=== PATIENT | female | born 1995 | race Caucasian/White ===

== ENCOUNTER 2018-06-06 11:24 | Inpatient (IN) | payer MEDICAID ==
[2018-06-06] MEDS ORDERED: Citric Acid/Sodium Citrate Solution 30 ML Cup PO ONE (12:09)
[2018-06-06] MEDS ORDERED: ceFAZolin 2 GM in Premix Bag 1 BAG IV ONE (12:09)
[2018-06-06] MEDS ORDERED: Sodium Chloride 0.9% 10 ML SDV IV PRN (12:09)
[2018-06-06] MEDS ORDERED: Sodium Chloride 0.9% 2.5 ML Syringe FLUSH PRN (12:09)
[2018-06-06] MEDS ORDERED: Sodium Chloride 0.9% 10 ML Syringe FLUSH PRN (12:09)
[2018-06-06] MEDS ORDERED: Oxytocin/0.9 % Sodium Chloride 30 UNIT/500 ML BAG IV SCH (12:15)
[2018-06-06] MEDS ORDERED: Lactated Ringers 1,000 ML IV SCH ×2 (12:15→15:15)
--- NOTE | 2018-06-06 13:22 | PCM.PREANE ---
Preanesthetic Assessment - Anesthesia/Transfusion/Family Hx Anesthesia History: Prior Anesthesia Without Reaction Family History of Anesthesia Reaction: No Transfusion History: Prior Transfusion Without Reaction - Review of Systems General: No Symptoms Pulmonary: No Symptoms Cardiovascular: No Symptoms Gastrointestinal: No Symptoms Neurological: No Symptoms Other: Reports: None - Physical Assessment NPO Status Date: 06/06/18 NPO Status Time: 00:00 Pulse: 86 O2 Sat by Pulse Oximetry: 99 Respiratory Rate: 18 Blood Pressure: 112/65 Temperature: 98.3 C Height: 1.63 m Weight: 73.709 kg ASA Class: 2E Mental Status: Alert & Oriented x3 Airway Class: Mallampati = 2 Dentition: Reports: Normal Dentition Thyro-Mental Finger Breadths: 3 Mouth Opening Finger Breadths: 3 ROM/Head Extension: Full Lungs: Clear to Auscultation, Normal Respiratory Effort Cardiovascular: Regular Rate, Regular Rhythm - Lab Values: Laboratory Last Values WBC 11.29 K/uL (4.0-11.0) H 06/06/18 12:17 RBC 4.24 M/uL (4.30-5.90) L 06/06/18 12:17 Hgb 12.3 g/dL (12.0-16.0) 06/06/18 12:17 Hct 37.7 % (36.0-46.0) 06/06/18 12:17 MCV 88.9 fL (80.0-98.0) 06/06/18 12:17 MCH 29.0 pg (27.0-32.0) 06/06/18 12:17 MCHC 32.6 g/dL (31.0-37.0) 06/06/18 12:17 RDW Std Deviation 80.2 fl (28.0-62.0) H 06/06/18 12:17 RDW Coeff of Sarah 26 % (11.0-15.0) H 06/06/18 12:17 Plt Count 183 K/uL (150-400) 06/06/18 12:17 MPV 10.50 fL (7.40-12.00) 06/06/18 12:17 Nucleated RBC % 0.0 /100WBC 06/06/18 12:17 Nucleated RBCs # 0 K/uL 06/06/18 12:17 Membrane Rupture POSITIVE 06/06/18 11:20 Blood Type O POSITIVE 06/06/18 12:17 Antibody Screen NEGATIVE 06/06/18 12:17 - Allergies Allergies/Adverse Reactions: Allergies Allergy/AdvReac Type Severity Reaction Status Date / Time No Known Allergies Allergy Verified 06/06/18 11:32 - Acknowledgements Anesthesia Type Planned: Spinal (possible general anesthesia if procedure is prolonged or spinal is inadequate. ) Pt an Appropriate Candidate for the Planned Anesthesia: Yes Alternatives and Risks of Anesthesia Discussed w Pt/Guardian: Yes Pt/Guardian Understands and Agrees with Anesthesia Plan: Yes PreAnesthesia Questionnaire HEENT History: Reports: Impaired Vision, Other (See Below) Other HEENT History: wears glasses Cardiovascular History: Reports: None Respiratory History: Reports: None Gastrointestinal History: Reports: GERD (in first trimester) Genitourinary History: Reports: None ROPE TIER History: Reports: , Spontaneous Musculoskeletal History: Reports: None Neurological History: Reports: None Psychiatric History: Reports: Depression, Panic Attack Endocrine/Metabolic History: Reports: None Hematologic History: Reports: Iron Deficiency (required iron transfusions during , she was transfused with iron last .) Immunologic History: Reports: None Oncologic (Cancer) History: Reports: None Dermatologic History: Reports: None - Infectious Disease History Infectious Disease History: Reports: None - Past Surgical History Head Surgeries/Procedures: Reports: None HEENT Surgical History: Reports: None GI Surgical History: Reports: None Female Surgical History: Reports: Section Musculoskeletal Surgical History: Reports: None Dermatological Surgical History: Reports: None - SUBSTANCE USE Smoking Status *Q: Former Smoker (stopped after first trimester) Days Per Week of Alcohol Use: 0 (none during ) Recreational Drug Use History: No - HOME MEDS Home Medications: Home Meds Escitalopram [Lexapro] 10 mg PO DAILY 06/04/18 [History] Ferrous Sulfate [Iron] 325 mg PO DAILY 06/04/18 [History] PNV95/Ferrous Fumarate/FA [ Vitamin Tablet] 2 tab PO DAILY 06/04/18 [ History] - CURRENT (IN HOUSE) MEDS Current Meds: Current Medications Oxytocin/Sodium Chloride (Oxytocin 30 Unit/500 Ml-Ns) 30 unit in 500 mls @ 250 mls/hr IV TITRATE ERYN Lactated Ringer's (Ringers, Lactated) 1,000 mls @ 500 mls/hr IV BOLUS ERYN Last Admin: 06/06/18 12:20 Dose: 500 mls/hr Sodium Chloride (Saline Flush) 10 ml FLUSH ASDIRECTED PRN PRN Reason: Keep Vein Open Sodium Chloride (Saline Flush) 2.5 ml FLUSH ASDIRECTED PRN PRN Reason: Keep Vein Open Sodium Chloride (Normal Saline) 10 ml IV ASDIRECTED PRN PRN Reason: IV Use Discontinued Medications Citric Acid/Sodium Citrate (Bicitra Solution) 30 ml PO ONETIME ONE Stop: 06/06/18 12:10 Cefazolin Sodium/Dextrose 2 gm (/ Premix) 50 mls @ 100 mls/hr IV ONETIME ONE Stop: 06/06/18 12:38
[2018-06-06] MEDS ORDERED: Morphine PF 10 MG/10 ML SDV ONE (13:54)
[2018-06-06] MEDS ORDERED: EPINEPHrine 1 MG/ML SDV ONE (13:54)
[2018-06-06] MEDS ORDERED: Metoclopramide 10 MG/2 ML SDV ONE (13:56)
[2018-06-06] MEDS ORDERED: Oxytocin 10 Units/1 ML SDV ONE (13:57)
[2018-06-06] MEDS ORDERED: Ondansetron 4 MG/2 ML SDV ONE (13:57)
[2018-06-06] MEDS ORDERED: Sodium Chloride 0.9% 0 ML ONE (13:58)
[2018-06-06] MEDS ORDERED: ceFAZolin 1 GM Vial ONE (13:58)
[2018-06-06] MEDS ORDERED: Famotidine 20 MG/2 ML SDV ONE (14:02)
[2018-06-06] MEDS ORDERED: Sodium Chloride 0.9% 20 ML ONE (14:31)
[2018-06-06] MEDS ORDERED: Ketorolac 30 MG/ML SDV ONE (14:42)
[2018-06-06] MEDS ORDERED: Bisacodyl 10 MG Supp RECTAL PRN (15:10)
[2018-06-06] MEDS ORDERED: Lanolin 100% Cream 7 GM Tube TOP PRN (15:10)
[2018-06-06] MEDS ORDERED: Ondansetron 4 MG/2 ML SDV IVPUSH PRN (15:10)
[2018-06-06] MEDS ORDERED: Acetaminophen/oxyCODONE 325-5 MG Tab PO PRN (15:10)
[2018-06-06] MEDS ORDERED: diphenhydrAMINE 50 MG/ML SDV IVPUSH PRN (15:10)
--- NOTE | 2018-06-06 15:10 | PCM.OPNOTE ---
- General Post-Op/Procedure Note Date of Surgery/Procedure: 06/06/18 Operative Procedure(s): repeat low transverse Findings: adhesions of bladder peritoneum to lower uterine segment. Normal tubes and ovaries, liverborn male 8/9 Pre Op Diagnosis: 39 weeks SROM prior , declines VTOL Post-Op Diagnosis: Same Anesthesia Technique: Spinal Primary Surgeon: Rossana Cartagena Secondary Surgeon: Esperanza Hastings Anesthesia Provider: Hanna Mckeon Pathology: none Fluid Replacement, Intraop: 2,000 Output, Urine Amount: 125 EBL in mLs: 750 (includes amniotic fluid) Complications: None Known Condition: Good
--- NOTE | 2018-06-06 16:01 | PCM.POSTAN ---
POST ANESTHESIA ASSESSMENT - MENTAL STATUS Mental Status: Alert, Oriented - RESPIRATORY Respiratory Status: Respiratory Rate WNL, Airway Patent, O2 Saturation Stable - CARDIOVASCULAR CV Status: Pulse Rate WNL, Blood Pressure Stable - GASTROINTESTINAL GI Status: No Symptoms - PAIN Pain Score: 0 - POST OP HYDRATION Hydration Status: Adequate & Stable - OBSERVATIONS Free Text/Narrative:: The patient tolerated the procedure well. There were no apparent anesthetic complications at this time.
[2018-06-06] MEDS: Ketorolac 30 MG/ML SDV IVPUSH SCH ×2 (16:15→21:09)
[2018-06-06] MEDS: Nalbuphine 10 MG/1 ML Vial IVPUSH PRN (17:46)
[2018-06-06] MEDS: Docusate Sodium 100 MG Cap PO SCH (21:10)
--- NOTE | 2018-06-06 22:01 | OR ---
SURGEON: Rossana Cartagena M.D. DATE OF PROCEDURE: 06/06/2018 PREOPERATIVE DIAGNOSES: Thirty-nine week intrauterine , spontaneous rupture of membranes, prior delivery, declines vaginal after caesarean. POSTOPERATIVE DIAGNOSES: Thirty-nine week intrauterine , spontaneous rupture of membranes, prior delivery, declines vaginal after caesarean. PROCEDURE PERFORMED: Repeat low-transverse section. ANESTHESIA: Spinal. ESTIMATED BLOOD LOSS: 750 mL with amniotic fluid. FINDINGS: Live-born male, score 8 and 9, weighing 3790 g. Placenta normal in appearance with 3 vessels. COMPLICATIONS: None known. DISPOSITION: Mother and baby are in recovery in good condition. BRIEF HISTORY: This is a 23-year-old female, she is G2, P1-0-0-1. She called at 39 weeks' gestation with spontaneous rupture of membranes. She was scheduled for repeat section on the following day. She was asked to come in. She was known to be group B strep negative. She had category 1 heart tones, and we did proceed with preparations for delivery. She has consented to the C- section with risks discussed including bleeding, infection, injury to bowel, bladder, blood vessels or other organs, risk of thromboembolic event, and risk of anesthesia. Understanding all these risks, she does desire to proceed. She has been treated with IV iron preoperatively over prior 2 weeks due to significant anemia during the . With this, her hemoglobin has improved markedly. DESCRIPTION OF PROCEDURE: With the patient in the left tilt position, under adequate spinal analgesia, the abdomen was prepped with chlorhexidine and draped in usual fashion for abdominal surgery. SCDs were in place. Fried catheter was in place and an appropriate time-out was held. She received 2 g of Ancef IV. After documentation of adequate analgesia, the prior cicatrix was excised and the skin was incised through the subcutaneous tissue to the fascia, which was scored transversely in the midline. The fascial incision was extended laterally using curved Hastings scissors. The fascia was elevated from the underlying rectus muscle using sharp and blunt dissection. The rectus muscles were bluntly in the midline. The peritoneum was entered bluntly, and the incision was extended using sharp and blunt dissection. The Dion O retractor was placed. There were adhesions of the bladder flap to the lower uterine segment and these were incised prior to placing the Dion. Once this was in place, further dissection of the bladder flap was performed and a transverse curvilinear incision was made over the lower uterine segment. Finger was used to enter the amniotic cavity. The incision was extended using blunt dissection. The head was delivered via the uterine incision. Clear fluid was noted with subsequent delivery of the 's shoulders and body without any difficulty. The infant was bulb suctioned by nose and mouth and the cord was clamped x2 and cut, and the infant was handed to the budget and policy analyst in attendance at delivery. The was a liveborn male, score 8 and 9, weighing 3790 g. Cord blood was collected for cord ABGs as well as routine cord blood sampling. Pitocin was initiated after delivery of the to assist with delivery of the placenta. The placenta was delivered. The uterus was cleaned with a dry laparotomy tape. The cervix was opened with a ring forceps. The uterine incision was closed with a running lock suture of 0 Polysorb followed by an imbricating layer of 0 Polysorb. The posterior cul-de-sac, pericolic gutters were irrigated and cleaned. The tubes and ovaries were inspected and appeared normal. The uterine incision was inspected. Two additional [id number] sutures were placed in the midline for complete hemostasis. With this, incision was hemostatic. After final inspection, the Dion O retractor was removed, and the peritoneum and rectus muscles were loosely approximated in midline using a running mattress suture of 0 Polysorb. The posterior aspect of the fascia was inspected and was hemostatic. The fascial incision was closed with a running suture of 0 Polysorb. Subcutaneous tissue was irrigated. Any areas of bleeding that were noted were cauterized. The skin was closed with a running subcuticular suture of 3-0 Monocryl followed by Dermabond. Final sponge, needle, and instrument counts were reported as correct. There were no known complications. Mother and baby are in recovery room in good condition. MADIHA / LIS /[id number]
[2018-06-07] MEDS: Ketorolac 30 MG/ML SDV IVPUSH SCH ×3 (03:04→15:14)
[2018-06-07] MEDS: Nalbuphine 10 MG/1 ML Vial IVPUSH PRN (04:56)
--- NOTE | 2018-06-07 07:59 | PCM.PNPP ---
<Racquel Estrella - Last Filed: 06/07/18 07:56> - General Info Date of Service: 06/07/18 Functional Status: Reports: Pain Controlled, Tolerating Diet, Ambulating, Urinating - Review of Systems General: Denies: Fever, Weakness, Fatigue Pulmonary: Denies: Shortness of Breath, Pleuritic Chest Pain, Cough Cardiovascular: Denies: Chest Pain, Palpitations, Dyspnea on Exertion Gastrointestinal: Denies: Abdominal Pain Genitourinary: Denies: Dysuria - General Info Date of Service: 06/07/18 - Patient Data Vital Signs - Most Recent: Last Vital Signs Temp 36.4 C 06/07/18 04:53 Pulse 84 06/07/18 07:00 Resp 17 06/07/18 07:00 BP 103/52 L 06/07/18 04:53 Pulse Ox 95 06/07/18 07:00 Weight - Most Recent: 73.709 kg I&O - Last 24 Hours: Intake & Output 06/06/18 06/07/18 06/07/18 22:59 06:59 14:59 Intake Total 4200 Output Total 125 1035 Balance 4075 -1035 Lab Results - Last 24 Hours: Laboratory Results - last 24 hr 06/06/18 06/06/18 06/06/18 Range/Units 11:20 12:17 12:17 WBC 11.29 H (4.0-11.0) K/uL RBC 4.24 L (4.30-5.90) M/uL Hgb 12.3 (12.0-16.0) g/dL Hct 37.7 (36.0-46.0) % MCV 88.9 (80.0-98.0) fL MCH 29.0 (27.0-32.0) pg MCHC 32.6 (31.0-37.0) g/dL RDW Std Deviation 80.2 H (28.0-62.0) fl RDW Coeff of Sarah 26 H (11.0-15.0) % Plt Count 183 (150-400) K/uL MPV 10.50 (7.40-12.00) fL Nucleated RBC % 0.0 /100WBC Nucleated RBCs # 0 K/uL Cord ABG pH (7.18-7.38) Cord ABG Base Excess (-10--2) Cord VBG pH (7.25-7.45) Cord VBG Base Excess (-10--2) Membrane Rupture POSITIVE Blood Type O POSITIVE Antibody Screen NEGATIVE 06/06/18 06/06/18 06/07/18 Range/Units 14:31 14:31 05:20 WBC (4.0-11.0) K/uL RBC (4.30-5.90) M/uL Hgb 10.6 L (12.0-16.0) g/dL Hct 33.9 L (36.0-46.0) % MCV (80.0-98.0) fL MCH (27.0-32.0) pg MCHC (31.0-37.0) g/dL RDW Std Deviation (28.0-62.0) fl RDW Coeff of Sarah (11.0-15.0) % Plt Count (150-400) K/uL MPV (7.40-12.00) fL Nucleated RBC % /100WBC Nucleated RBCs # K/uL Cord ABG pH 7.291 (7.18-7.38) Cord ABG Base Excess -3 (-10--2) Cord VBG pH 7.360 (7.25-7.45) Cord VBG Base Excess -2 (-10--2) Membrane Rupture Blood Type Antibody Screen Med Orders - Current: Current Medications Bisacodyl (Dulcolax) 10 mg RECTAL ONETIME PRN PRN Reason: Constipation Diphenhydramine HCl (Benadryl) 25 mg IVPUSH Q6H PRN PRN Reason: Itching or Nausea Docusate Sodium (Colace) 100 mg PO BID [facility] Last Admin: 06/06/18 21:10 Dose: 100 mg Emollient Ointment (Lansinoh Hpa) 0 gm TOP ASDIRECTED PRN PRN Reason: Sore Nipples Escitalopram Oxalate (Lexapro) 10 mg PO DAILY [facility] Ferrous Sulfate (Ferrous Sulfate) 325 mg PO DAILY [facility] Oxytocin/Sodium Chloride (Oxytocin 30 Unit/500 Ml-Ns) 30 unit in 500 mls @ 250 mls/hr IV TITRATE [facility] Lactated Ringer's (Ringers, Lactated) 1,000 mls @ 500 mls/hr IV BOLUS [facility] Last Admin: 04/25/19 12:20 Dose: 500 mls/hr Lactated Ringer's (Ringers, Lactated) 1,000 mls @ 125 mls/hr IV ASDIRECTED ERYN Ibuprofen (Motrin) 800 mg PO Q8H PRN PRN Reason: mild pain or fever Ketorolac Tromethamine (Toradol) 30 mg IVPUSH Q6H ERYN Stop: 06/07/18 15:16 Last Admin: 06/07/18 03:04 Dose: 30 mg Nalbuphine HCl (Nubain) 10 mg IVPUSH Q6H PRN PRN Reason: Itching Last Admin: 06/07/18 04:56 Dose: 10 mg Ondansetron HCl (Zofran) 4 mg IVPUSH Q4H PRN PRN Reason: Nausea/Vomiting Oxycodone/Acetaminophen (Percocet 325-5 Mg) 1 tab PO Q4H PRN PRN Reason: Pain (moderate 4-6) Oxycodone/Acetaminophen (Percocet 325-5 Mg) 2 tab PO Q4H PRN PRN Reason: Pain (moderate 4-6) Prenat Multivit/[address]/Iron/Folic Ac ( Mtr) 2 each PO DAILY [facility] Sodium Chloride (Saline Flush) 10 ml FLUSH ASDIRECTED PRN PRN Reason: Keep Vein Open Last Admin: 06/06/18 12:20 Dose: 10 ml Sodium Chloride (Saline Flush) 2.5 ml FLUSH ASDIRECTED PRN PRN Reason: Keep Vein Open Sodium Chloride (Normal Saline) 10 ml IV ASDIRECTED PRN PRN Reason: IV Use Discontinued Medications Cefazolin Sodium (Ancef) Confirm Administered Dose 2 gm .ROUTE .STK-MED ONE Stop: 06/06/18 13:59 Citric Acid/Sodium Citrate (Bicitra Solution) 30 ml PO ONETIME ONE Stop: 06/06/18 12:10 Last Admin: 06/06/18 13:59 Dose: 30 ml Epinephrine HCl (Adrenalin) Confirm Administered Dose 1 mg .ROUTE .STK-MED ONE Stop: 06/06/18 13:55 Famotidine (Pepcid) Confirm Administered Dose 20 mg .ROUTE .STK-MED ONE Stop: 06/06/18 14:03 Cefazolin Sodium/Dextrose 2 gm (/ Premix) 50 mls @ 100 mls/hr IV ONETIME ONE Stop: 06/06/18 12:38 Sodium Chloride (Normal Saline) Confirm Administered Dose 20 mls @ as directed .ROUTE .STK-MED ONE Stop: 06/06/18 13:59 Sodium Chloride (Normal Saline) Confirm Administered Dose 20 mls @ as directed .ROUTE .STK-MED ONE Stop: 06/06/18 14:32 Ketorolac Tromethamine (Toradol) Confirm Administered Dose 30 mg .ROUTE .STK- MED ONE Stop: 06/06/18 14:43 Metoclopramide HCl (Reglan) Confirm Administered Dose 10 mg .ROUTE .STK-MED ONE Stop: 06/06/18 13:57 Morphine Sulfate (Duramorph Pf) Confirm Administered Dose 10 mg .ROUTE .STK-MED ONE Stop: 06/06/18 13:55 Ondansetron HCl (Zofran) Confirm Administered Dose 4 mg .ROUTE .STK-MED ONE Stop: 06/06/18 13:58 Oxytocin (Pitocin) Confirm Administered Dose 20 unit .ROUTE .STK-MED ONE Stop: 06/06/18 13:58 - Interaction Disposition, : in Room with Family Interaction: Holding Infant Feeding: Bottle Fed Support Person: Significant Other - Recovery Exam Fundal Tone: Firm Fundal Level: 1 Fingerbreadths Below Umbilicus Fundal Placement: Midline Lochia Amount: Scant Lochia Color: Rubra/Red Perineum Description: Intact, Minimal Bruising/Swelling Episiotomy/Laceration: Approximated Bladder Status: Voiding Urinary Elimination: Indwelling Catheter - Exam General: Alert, Oriented Neck: Supple Lungs: Clear to Auscultation, Normal Respiratory Effort Cardiovascular: Regular Rate, Regular Rhythm GI/Abdominal Exam: Normal Bowel Sounds, Soft, Non-Tender, No Distention, No Mass Extremities: Normal Inspection, Normal Range of Motion, Non-Tender, Normal Capillary Refill, Pedal Edema (trace) Skin: Warm, Dry, Intact - Problem List & Annotations (1) delivery delivered SNOMED Code(s): 458791926 Code(s): O82 - ENCOUNTER FOR DELIVERY WITHOUT INDICATION Status: Acute Current Visit: Yes - Problem List Review Problem List Initiated/Reviewed/Updated: Yes - Assessment Assessment:: POD #1 s/p RLTCS. Minimal pain and lochia. Bottle feeding. Aim for discharge home tomorrow. - Plan Plan:: Continue routine post-op cares. Anticipate discharge home tomorrow. <Rossana Cartagena - Last Filed: 06/07/18 08:08> - Patient Data Vital Signs - Most Recent: Last Vital Signs Temp 36.4 C 06/07/18 04:53 Pulse 84 06/07/18 07:00 Resp 17 06/07/18 07:00 BP 103/52 L 06/07/18 04:53 Pulse Ox 95 06/07/18 07:00 I&O - Last 24 Hours: Intake & Output 06/06/18 06/07/18 06/07/18 22:59 06:59 14:59 Intake Total 4200 Output Total 125 1035 Balance 4075 -1035 Lab Results - Last 24 Hours: Laboratory Results - last 24 hr 06/06/18 06/06/18 06/06/18 Range/Units 11:20 12:17 12:17 WBC 11.29 H (4.0-11.0) K/uL RBC 4.24 L (4.30-5.90) M/uL Hgb 12.3 (12.0-16.0) g/dL Hct 37.7 (36.0-46.0) % MCV 88.9 (80.0-98.0) fL MCH 29.0 (27.0-32.0) pg MCHC 32.6 (31.0-37.0) g/dL RDW Std Deviation 80.2 H (28.0-62.0) fl RDW Coeff of Sarah 26 H (11.0-15.0) % Plt Count 183 (150-400) K/uL MPV 10.50 (7.40-12.00) fL Nucleated RBC % 0.0 /100WBC Nucleated RBCs # 0 K/uL Cord ABG pH (7.18-7.38) Cord ABG Base Excess (-10--2) Cord VBG pH (7.25-7.45) Cord VBG Base Excess (-10--2) Membrane Rupture POSITIVE Blood Type O POSITIVE Antibody Screen NEGATIVE 06/06/18 06/06/18 06/07/18 Range/Units 14:31 14:31 05:20 WBC (4.0-11.0) K/uL RBC (4.30-5.90) M/uL Hgb 10.6 L (12.0-16.0) g/dL Hct 33.9 L (36.0-46.0) % MCV (80.0-98.0) fL MCH (27.0-32.0) pg MCHC (31.0-37.0) g/dL RDW Std Deviation (28.0-62.0) fl RDW Coeff of Sarah (11.0-15.0) % Plt Count (150-400) K/uL MPV (7.40-12.00) fL Nucleated RBC % /100WBC Nucleated RBCs # K/uL Cord ABG pH 7.291 (7.18-7.38) Cord ABG Base Excess -3 (-10--2) Cord VBG pH 7.360 (7.25-7.45) Cord VBG Base Excess -2 (-10--2) Membrane Rupture Blood Type Antibody Screen Med Orders - Current: Current Medications Bisacodyl (Dulcolax) 10 mg RECTAL ONETIME PRN PRN Reason: Constipation Diphenhydramine HCl (Benadryl) 25 mg IVPUSH Q6H PRN PRN Reason: Itching or Nausea Docusate Sodium (Colace) 100 mg PO BID [facility] Last Admin: 06/06/18 21:10 Dose: 100 mg Emollient Ointment (Lansinoh Hpa) 0 gm TOP ASDIRECTED PRN PRN Reason: Sore Nipples Escitalopram Oxalate (Lexapro) 10 mg PO DAILY [facility] Ferrous Sulfate (Ferrous Sulfate) 325 mg PO DAILY [facility] Oxytocin/Sodium Chloride (Oxytocin 30 Unit/500 Ml-Ns) 30 unit in 500 mls @ 250 mls/hr IV TITRATE [facility] Lactated Ringer's (Ringers, Lactated) 1,000 mls @ 500 mls/hr IV BOLUS [facility] Last Admin: 06/06/18 12:20 Dose: 500 mls/hr Lactated Ringer's (Ringers, Lactated) 1,000 mls @ 125 mls/hr IV ASDIRECTED [facility] Ibuprofen (Motrin) 800 mg PO Q8H PRN PRN Reason: mild pain or fever Ketorolac Tromethamine (Toradol) 30 mg IVPUSH Q6H [facility] Stop: 06/07/18 15:16 Last Admin: 06/07/18 03:04 Dose: 30 mg Nalbuphine HCl (Nubain) 10 mg IVPUSH Q6H PRN PRN Reason: Itching Last Admin: 06/07/18 04:56 Dose: 10 mg Ondansetron HCl (Zofran) 4 mg IVPUSH Q4H PRN PRN Reason: Nausea/Vomiting Oxycodone/Acetaminophen (Percocet 325-5 Mg) 1 tab PO Q4H PRN PRN Reason: Pain (moderate 4-6) Oxycodone/Acetaminophen (Percocet 325-5 Mg) 2 tab PO Q4H PRN PRN Reason: Pain (moderate 4-6) Prenat Multivit/[address]/Iron/Folic Ac ( Mtr) 2 each PO DAILY [facility] Sodium Chloride (Saline Flush) 10 ml FLUSH ASDIRECTED PRN PRN Reason: Keep Vein Open Last Admin: 06/06/18 12:20 Dose: 10 ml Sodium Chloride (Saline Flush) 2.5 ml FLUSH ASDIRECTED PRN PRN Reason: Keep Vein Open Sodium Chloride (Normal Saline) 10 ml IV ASDIRECTED PRN PRN Reason: IV Use Discontinued Medications Cefazolin Sodium (Ancef) Confirm Administered Dose 2 gm .ROUTE .STK-MED ONE Stop: 06/06/18 13:59 Citric Acid/Sodium Citrate (Bicitra Solution) 30 ml PO ONETIME ONE Stop: 06/06/18 12:10 Last Admin: 06/06/18 13:59 Dose: 30 ml Epinephrine HCl (Adrenalin) Confirm Administered Dose 1 mg .ROUTE .STK-MED ONE Stop: 06/06/18 13:55 Famotidine (Pepcid) Confirm Administered Dose 20 mg .ROUTE .STK-MED ONE Stop: 06/06/18 14:03 Cefazolin Sodium/Dextrose 2 gm (/ Premix) 50 mls @ 100 mls/hr IV ONETIME ONE Stop: 06/06/18 12:38 Sodium Chloride (Normal Saline) Confirm Administered Dose 20 mls @ as directed .ROUTE .STK-MED ONE Stop: 06/06/18 13:59 Sodium Chloride (Normal Saline) Confirm Administered Dose 20 mls @ as directed .ROUTE .STK-MED ONE Stop: 06/06/18 14:32 Ketorolac Tromethamine (Toradol) Confirm Administered Dose 30 mg .ROUTE .STK- MED ONE Stop: 06/06/18 14:43 Metoclopramide HCl (Reglan) Confirm Administered Dose 10 mg .ROUTE .STK-MED ONE Stop: 06/06/18 13:57 Morphine Sulfate (Duramorph Pf) Confirm Administered Dose 10 mg .ROUTE .STK-MED ONE Stop: 06/06/18 13:55 Ondansetron HCl (Zofran) Confirm Administered Dose 4 mg .ROUTE .STK-MED ONE Stop: 06/06/18 13:58 Oxytocin (Pitocin) Confirm Administered Dose 20 unit .ROUTE .STK-MED ONE Stop: 06/06/18 13:58 - Problem List Review Problem List Initiated/Reviewed/Updated: Yes - My Orders Last 24 Hours: My Active Orders 06/06/18 11:29 Up ad Megan [RC] ASDIRECTED Vital Signs [RC] Q1H Resuscitation Status Routine 06/06/18 12:09 Up ad Megan [RC] ASDIRECTED Vital Signs [RC] PER UNIT ROUTINE Sodium Chloride 0.9% [Normal Saline] 10 ml IV ASDIRECTED PRN Sodium Chloride 0.9% [Saline Flush] 10 ml FLUSH ASDIRECTED PRN Sodium Chloride 0.9% [Saline Flush] 2.5 ml FLUSH ASDIRECTED PRN Peripheral IV Insertion Adult [OM.PC] Routine Schedule Procedure [COMM] Per Unit Routine 06/06/18 12:12 Notify Provider Vital Signs [RC] PRN 06/06/18 12:15 Lactated Ringers [Ringers, Lactated] 1,000 ml IV BOLUS Oxytocin/0.9 % Sodium Chloride [Oxytocin 30 Unit/500 ML-NS] 30 unit in 500 ml IV TITRATE 06/06/18 15:10 Patient Status [ADT] Routine Ambulate [RC] PER UNIT ROUTINE Communication Order [RC] PER UNIT ROUTINE Communication Order [RC] PER UNIT ROUTINE Communication Order [RC] Per Unit Routine May Shower [RC] ASDIRECTED Notify Provider Intake and Out [RC] ASDIRECTED Notify Provider Vital Signs [RC] ASDIRECTED RT Incentive Spirometry [RC] Q2HWA Vital Signs [RC] PER UNIT ROUTINE Acetaminophen/oxyCODONE [Percocet 325-5 MG] 1 tab PO Q4H PRN Acetaminophen/oxyCODONE [Percocet 325-5 MG] 2 tab PO Q4H PRN Bisacodyl [Dulcolax] 10 mg RECTAL ONETIME PRN Ibuprofen [Motrin] 800 mg PO Q8H PRN Lanolin [Lansinoh HPA] See Dose Instructions TOP ASDIRECTED PRN Ondansetron [Zofran] 4 mg IVPUSH Q4H PRN diphenhydrAMINE [Benadryl] 25 mg IVPUSH Q6H PRN Abdominal Binder [OM.PC] Urgent Assess Lochia [WOMSER] Per Unit Routine Assess Uterine Involution [WOMSER] Per Unit Routine Breast Pump [WOMSER] Per Unit Routine Peripheral IV Discontinue [OM.PC] Routine Sequential Compression Device [OM.PC] Per Unit Routine 06/06/18 15:11 Antiembolic Devices [RC] PER UNIT ROUTINE 06/06/18 15:15 Ketorolac [Toradol] 30 mg IVPUSH Q6H Lactated Ringers [Ringers, Lactated] 1,000 ml IV ASDIRECTED 06/06/18 21:00 Docusate Sodium [Colace] 100 mg PO BID 06/06/18 Dinner Regular Diet [DIET] 06/07/18 09:00 Escitalopram [Lexapro] 10 mg PO DAILY Ferrous Sulfate 325 mg PO DAILY Vit/FA/Fe Fumarate/Se [ MTR] 2 each PO DAILY - Assessment Assessment:: Patient was seen and examined by me and I agree with above.
[2018-06-07] MEDS: Docusate Sodium 100 MG Cap PO SCH ×2 (09:07→21:19)
[2018-06-07] MEDS: Ferrous Sulfate 325 MG Tab PO SCH (09:08)
[2018-06-07] MEDS: Escitalopram 10 MG Tab PO SCH (09:08)
[2018-06-07] MEDS: Prenatal Multivitamin and Multimineral with Iron Tab PO SCH (09:12)
--- NOTE | 2018-06-07 14:06 | PCM48HPAN ---
Post Anesthesia Note - EVALUATION WITHIN 48HRS OF ANESTHETIC Vital Signs in Normal Range: Yes Patient Participated in Evaluation: Yes Respiratory Function Stable: Yes Airway Patent: Yes Cardiovascular Function Stable: Yes Hydration Status Stable: Yes Pain Control Satisfactory: Yes Nausea and Vomiting Control Satisfactory: Yes Pulse Rate: 86 Resp Rate: 16 Temperature: 98.3 C Blood Pressure: 112/65
[2018-06-07] MEDS: Acetaminophen/oxyCODONE 325-5 MG Tab PO PRN (19:33)
[2018-06-07] MEDS: Ibuprofen 800 MG Tab PO PRN (23:56)
[2018-06-08] MEDS: Acetaminophen/oxyCODONE 325-5 MG Tab PO PRN ×3 (04:22→16:06)
[2018-06-08] MEDS: Ferrous Sulfate 325 MG Tab PO SCH (09:09)
[2018-06-08] MEDS: Docusate Sodium 100 MG Cap PO SCH ×3 (09:10→21:20)
[2018-06-08] MEDS: Escitalopram 10 MG Tab PO SCH (09:10)
[2018-06-08] MEDS: Prenatal Multivitamin and Multimineral with Iron Tab PO SCH (09:10)
[2018-06-08] MEDS: Ibuprofen 800 MG Tab PO PRN ×2 (09:11→19:19)
--- NOTE | 2018-06-08 09:27 | PCM.PNPP ---
- General Info Date of Service: 06/08/18 Subjective Update: Has been ambulating, showered this am, now feeling gas pain, has passed some gas. Not sure about going home today or tomorrow. Functional Status: Reports: Pain Controlled, Tolerating Diet, Ambulating, Urinating - Review of Systems General: Reports: No Symptoms HEENT: Reports: No Symptoms Pulmonary: Reports: No Symptoms Cardiovascular: Reports: No Symptoms Gastrointestinal: Reports: Abdominal Pain (gas) Genitourinary: Reports: No Symptoms Musculoskeletal: Reports: No Symptoms Skin: Reports: No Symptoms Neurological: Reports: No Symptoms Psychiatric: Reports: No Symptoms - Patient Data Vital Signs - Most Recent: Last Vital Signs Temp 36.4 C 06/08/18 07:11 Pulse 84 06/08/18 07:11 Resp 16 06/08/18 07:11 BP 100/73 06/08/18 07:11 Pulse Ox 100 06/08/18 07:11 Weight - Most Recent: 73.709 kg Med Orders - Current: Current Medications Bisacodyl (Dulcolax) 10 mg RECTAL ONETIME PRN PRN Reason: Constipation Diphenhydramine HCl (Benadryl) 25 mg IVPUSH Q6H PRN PRN Reason: Itching or Nausea Docusate Sodium (Colace) 100 mg PO BID [facility] Last Admin: 06/08/18 09:10 Dose: 100 mg Emollient Ointment (Lansinoh Hpa) 0 gm TOP ASDIRECTED PRN PRN Reason: Sore Nipples Escitalopram Oxalate (Lexapro) 10 mg PO DAILY [facility] Last Admin: 06/08/18 09:10 Dose: 10 mg Ferrous Sulfate (Ferrous Sulfate) 325 mg PO DAILY [facility] Last Admin: 06/08/18 09:09 Dose: 325 mg Oxytocin/Sodium Chloride (Oxytocin 30 Unit/500 Ml-Ns) 30 unit in 500 mls @ 250 mls/hr IV TITRATE [facility] Lactated Ringer's (Ringers, Lactated) 1,000 mls @ 500 mls/hr IV BOLUS [facility] Last Admin: 06/06/18 12:20 Dose: 500 mls/hr Lactated Ringer's (Ringers, Lactated) 1,000 mls @ 125 mls/hr IV ASDIRECTED [facility] Ibuprofen (Motrin) 800 mg PO Q8H PRN PRN Reason: mild pain or fever Last Admin: 06/08/18 09:11 Dose: 800 mg Nalbuphine HCl (Nubain) 10 mg IVPUSH Q6H PRN PRN Reason: Itching Last Admin: 06/07/18 04:56 Dose: 10 mg Ondansetron HCl (Zofran) 4 mg IVPUSH Q4H PRN PRN Reason: Nausea/Vomiting Oxycodone/Acetaminophen (Percocet 325-5 Mg) 1 tab PO Q4H PRN PRN Reason: Pain (moderate 4-6) Last Admin: 06/08/18 09:11 Dose: 1 tab Oxycodone/Acetaminophen (Percocet 325-5 Mg) 2 tab PO Q4H PRN PRN Reason: Pain (moderate 4-6) Prenat Multivit/Robotic [employer]der/Iron/Folic Ac ( Mtr) 2 each PO DAILY [facility] Last Admin: 06/08/18 09:10 Dose: 2 each Sodium Chloride (Saline Flush) 10 ml FLUSH ASDIRECTED PRN PRN Reason: Keep Vein Open Last Admin: 06/06/18 12:20 Dose: 10 ml Sodium Chloride (Saline Flush) 2.5 ml FLUSH ASDIRECTED PRN PRN Reason: Keep Vein Open Sodium Chloride (Normal Saline) 10 ml IV ASDIRECTED PRN PRN Reason: IV Use Discontinued Medications Cefazolin Sodium (Ancef) Confirm Administered Dose 2 gm .ROUTE .STK-MED ONE Stop: 06/06/18 13:59 Citric Acid/Sodium Citrate (Bicitra Solution) 30 ml PO ONETIME ONE Stop: 06/06/18 12:10 Last Admin: 06/06/18 13:59 Dose: 30 ml Epinephrine HCl (Adrenalin) Confirm Administered Dose 1 mg .ROUTE .STK-MED ONE Stop: 06/06/18 13:55 Famotidine (Pepcid) Confirm Administered Dose 20 mg .ROUTE .STK-MED ONE Stop: 06/06/18 14:03 Cefazolin Sodium/Dextrose 2 gm (/ Premix) 50 mls @ 100 mls/hr IV ONETIME ONE Stop: 06/06/18 12:38 Sodium Chloride (Normal Saline) Confirm Administered Dose 20 mls @ as directed .ROUTE .STK-MED ONE Stop: 06/06/18 13:59 Sodium Chloride (Normal Saline) Confirm Administered Dose 20 mls @ as directed .ROUTE .STK-MED ONE Stop: 06/06/18 14:32 Ketorolac Tromethamine (Toradol) Confirm Administered Dose 30 mg .ROUTE .STK- MED ONE Stop: 06/06/18 14:43 Ketorolac Tromethamine (Toradol) 30 mg IVPUSH Q6H ERYN Stop: 06/07/18 15:16 Last Admin: 06/07/18 15:14 Dose: 30 mg Metoclopramide HCl (Reglan) Confirm Administered Dose 10 mg .ROUTE .STK-MED ONE Stop: 06/06/18 13:57 Morphine Sulfate (Duramorph Pf) Confirm Administered Dose 10 mg .ROUTE .STK-MED ONE Stop: 06/06/18 13:55 Ondansetron HCl (Zofran) Confirm Administered Dose 4 mg .ROUTE .STK-MED ONE Stop: 06/06/18 13:58 Oxytocin (Pitocin) Confirm Administered Dose 20 unit .ROUTE .STK-MED ONE Stop: 06/06/18 13:58 - Infant Interaction Disposition, : in Room with Family Interaction: Holding Feeding: Bottle Fed Infant Support Person: Significant Other - Recovery Exam Fundal Tone: Firm Fundal Level: 1 Fingerbreadths Below Umbilicus Fundal Placement: Midline Lochia Amount: Scant Lochia Color: Rubra/Red Perineum Description: Intact, Minimal Bruising/Swelling Episiotomy/Laceration: Approximated Bladder Status: Voiding Urinary Elimination: Voided - Exam General: Alert, Oriented HEENT: Pupils Equal Neck: Supple Lungs: Clear to Auscultation, Normal Respiratory Effort Cardiovascular: Regular Rate, Regular Rhythm GI/Abdominal Exam: Normal Bowel Sounds, Soft, Non-Tender, No Organomegaly, No Mass, Pelvis Stable. No: No Distention (slightly distended) Extremities: Normal Inspection, Non-Tender, No Pedal Edema Skin: Warm, Dry, Intact Wound/Incisions: Healing Well Neurological: No New Focal Deficit Psy/Mental Status: Alert, Normal Affect, Normal Mood - Problem List Review Problem List Initiated/Reviewed/Updated: Yes - My Orders Last 24 Hours: My Active Orders 06/07/18 09:00 Escitalopram [Lexapro] 10 mg PO DAILY Ferrous Sulfate 325 mg PO DAILY Vit/FA/Fe Fumarate/Se [ MTR] 2 each PO DAILY - Assessment Assessment:: PPD#3 after repeat low transverse , stable, gas pain, some anxiety. - Plan Plan:: Discharge instructions reviewed. For depression/anxiety she will continue on Lexapro. Start Simethicone today for gas pain and rx for ibuprofen and Percocet written. Due to severe iron deficiency requiring iron transfusion prior to delivery, I would like her to stay on iron supplement at least every other day, will all of this, she will need stool softener.
[2018-06-08] MEDS ORDERED: Simethicone 80 MG Tab.Chew PO PRN (09:32)
[2018-06-09] MEDS: Prenatal Multivitamin and Multimineral with Iron Tab PO SCH (08:35)
[2018-06-09] MEDS: Ferrous Sulfate 325 MG Tab PO SCH (08:35)
[2018-06-09] MEDS: Escitalopram 10 MG Tab PO SCH (08:35)
[2018-06-09] MEDS: Docusate Sodium 100 MG Cap PO SCH (08:35)
--- NOTE | 2018-06-09 10:38 | PCM.PNPP ---
- General Info Date of Service: 06/09/18 Functional Status: Reports: Pain Controlled, Tolerating Diet, Ambulating, Urinating - Review of Systems General: Reports: No Symptoms HEENT: Reports: No Symptoms Pulmonary: Reports: No Symptoms Cardiovascular: Reports: No Symptoms Gastrointestinal: Reports: No Symptoms Genitourinary: Reports: No Symptoms Musculoskeletal: Reports: No Symptoms Skin: Reports: No Symptoms Neurological: Reports: No Symptoms Psychiatric: Reports: No Symptoms - Patient Data Vital Signs - Most Recent: Last Vital Signs Temp 36.3 C 06/09/18 07:39 Pulse 79 06/09/18 07:39 Resp 16 06/09/18 07:39 BP 108/55 L 06/09/18 07:39 Pulse Ox 97 06/09/18 07:39 Weight - Most Recent: 73.709 kg Med Orders - Current: Current Medications Bisacodyl (Dulcolax) 10 mg RECTAL ONETIME PRN PRN Reason: Constipation Diphenhydramine HCl (Benadryl) 25 mg IVPUSH Q6H PRN PRN Reason: Itching or Nausea Docusate Sodium (Colace) 100 mg PO BID [facility] Last Admin: 06/09/18 08:35 Dose: 100 mg Emollient Ointment (Lansinoh Hpa) 0 gm TOP ASDIRECTED PRN PRN Reason: Sore Nipples Escitalopram Oxalate (Lexapro) 10 mg PO DAILY [facility] Last Admin: 06/09/18 08:35 Dose: 10 mg Ferrous Sulfate (Ferrous Sulfate) 325 mg PO DAILY [facility] Last Admin: 06/09/18 08:35 Dose: 325 mg Oxytocin/Sodium Chloride (Oxytocin 30 Unit/500 Ml-Ns) 30 unit in 500 mls @ 250 mls/hr IV TITRATE [facility] Lactated Ringer's (Ringers, Lactated) 1,000 mls @ 500 mls/hr IV BOLUS [facility] Last Admin: 06/06/18 12:20 Dose: 500 mls/hr Lactated Ringer's (Ringers, Lactated) 1,000 mls @ 125 mls/hr IV ASDIRECTED [facility] Ibuprofen (Motrin) 800 mg PO Q8H PRN PRN Reason: mild pain or fever Last Admin: 06/08/18 19:19 Dose: 800 mg Nalbuphine HCl (Nubain) 10 mg IVPUSH Q6H PRN PRN Reason: Itching Last Admin: 06/07/18 04:56 Dose: 10 mg Ondansetron HCl (Zofran) 4 mg IVPUSH Q4H PRN PRN Reason: Nausea/Vomiting Oxycodone/Acetaminophen (Percocet 325-5 Mg) 1 tab PO Q4H PRN PRN Reason: Pain (moderate 4-6) Last Admin: 06/08/18 16:06 Dose: 1 tab Oxycodone/Acetaminophen (Percocet 325-5 Mg) 2 tab PO Q4H PRN PRN Reason: Pain (moderate 4-6) Prenat Multivit/[place]/Iron/Folic Ac ( Mtr) 2 each PO DAILY [facility] Last Admin: 06/09/18 08:35 Dose: 2 each Simethicone (Simethicone) 80 mg PO Q4H PRN PRN Reason: Abdominal Pain Last Admin: 06/08/18 13:24 Dose: 80 mg Sodium Chloride (Saline Flush) 10 ml FLUSH ASDIRECTED PRN PRN Reason: Keep Vein Open Last Admin: 06/06/18 12:20 Dose: 10 ml Sodium Chloride (Saline Flush) 2.5 ml FLUSH ASDIRECTED PRN PRN Reason: Keep Vein Open Sodium Chloride (Normal Saline) 10 ml IV ASDIRECTED PRN PRN Reason: IV Use Discontinued Medications Cefazolin Sodium (Ancef) Confirm Administered Dose 2 gm .ROUTE .STK-MED ONE Stop: 06/06/18 13:59 Citric Acid/Sodium Citrate (Bicitra Solution) 30 ml PO ONETIME ONE Stop: 06/06/18 12:10 Last Admin: 06/06/18 13:59 Dose: 30 ml Epinephrine HCl (Adrenalin) Confirm Administered Dose 1 mg .ROUTE .STK-MED ONE Stop: 06/06/18 13:55 Famotidine (Pepcid) Confirm Administered Dose 20 mg .ROUTE .STK-MED ONE Stop: 06/06/18 14:03 Cefazolin Sodium/Dextrose 2 gm (/ Premix) 50 mls @ 100 mls/hr IV ONETIME ONE Stop: 06/06/18 12:38 Sodium Chloride (Normal Saline) Confirm Administered Dose 20 mls @ as directed .ROUTE .STK-MED ONE Stop: 06/06/18 13:59 Sodium Chloride (Normal Saline) Confirm Administered Dose 20 mls @ as directed .ROUTE .STK-MED ONE Stop: 06/06/18 14:32 Ketorolac Tromethamine (Toradol) Confirm Administered Dose 30 mg .ROUTE .STK- MED ONE Stop: 06/06/18 14:43 Ketorolac Tromethamine (Toradol) 30 mg IVPUSH Q6H ERYN Stop: 06/07/18 15:16 Last Admin: 06/07/18 15:14 Dose: 30 mg Metoclopramide HCl (Reglan) Confirm Administered Dose 10 mg .ROUTE .STK-MED ONE Stop: 06/06/18 13:57 Morphine Sulfate (Duramorph Pf) Confirm Administered Dose 10 mg .ROUTE .STK-MED ONE Stop: 06/06/18 13:55 Ondansetron HCl (Zofran) Confirm Administered Dose 4 mg .ROUTE .STK-MED ONE Stop: 06/06/18 13:58 Oxytocin (Pitocin) Confirm Administered Dose 20 unit .ROUTE .STK-MED ONE Stop: 06/06/18 13:58 - Infant Interaction Infant Disposition, : [place] in Room with Family Infant Interaction: Holding Infant Feeding: Bottle Fed Support Person: Significant Other - Recovery Exam Fundal Tone: Firm Fundal Level: 1 Fingerbreadths Below Umbilicus Fundal Placement: Midline Lochia Amount: Scant Lochia Color: Rubra/Red Perineum Description: Intact, Minimal Bruising/Swelling Episiotomy/Laceration: Approximated Bladder Status: Voiding Urinary Elimination: Voided - Exam General: Alert, Oriented HEENT: Pupils Equal Neck: Supple Lungs: Clear to Auscultation, Normal Respiratory Effort Cardiovascular: Regular Rate, Regular Rhythm GI/Abdominal Exam: Normal Bowel Sounds, Soft, Non-Tender, No Organomegaly, No Distention, No Mass Extremities: Normal Inspection, Non-Tender, No Pedal Edema Skin: Warm, Dry, Intact Wound/Incisions: Healing Well Neurological: No New Focal Deficit Psy/Mental Status: Alert, Normal Affect, Normal Mood - Problem List & Annotations (1) delivery delivered SNOMED Code(s): 243033839 Code(s): O82 - ENCOUNTER FOR DELIVERY WITHOUT INDICATION Status: Acute Current Visit: Yes - Problem List Review Problem List Initiated/Reviewed/Updated: Yes - Assessment Assessment:: PPD#3 after repeat low transverse , stable, pain and anxiety improved - Plan Plan:: Discharge instructions reviewed. dismiss to home. Follow up in 2 weeks.
== END 2018-06-09 11:10 | disposition home or self-care (01) | DRG 788 ==
LOC: MW.OBCHECK 11:24 → MW.OB 11:27 → MW.OBCHECK 12:09 → MW.OB 12:22
PROVIDERS: ADMIT Obstetrics & Gynecology; ATTEND Obstetrics & Gynecology
PROC: 10D00Z1 Extraction of Products of Conception, Low, Open Approach (ICD-10-PCS; principal; 2018-06-06)
PROC: 6A550ZT Pheresis of Cord Blood Stem Cells, Single (ICD-10-PCS; principal; 2018-06-06)
DX: O34.211 Maternal care for low transverse scar from previous cesarean delivery (principal); Z3A.39 39 weeks gestation of pregnancy; N85.8 Other specified noninflammatory disorders of uterus; Z37.0 Single live birth; O99.02 Anemia complicating childbirth; D64.9 Anemia, unspecified; O99.284 Endocrine, nutritional and metabolic diseases complicating childbirth; E53.8 Deficiency of other specified B group vitamins; E61.1 Iron deficiency; O99.344 Other mental disorders complicating childbirth; F41.9 Anxiety disorder, unspecified; F32.9 Major depressive disorder, single episode, unspecified; O90.89 Other complications of the puerperium, not elsewhere classified; R14.1 Gas pain; Z79.899 Other long term (current) drug therapy; Z87.891 Personal history of nicotine dependence
CPT/HCPCS: 36415; 59025; 82803; 84112; 85014; 85018; 85027; 86850; 86900; 86901; A9270-GY; J0171; J0690; J1885; J2270; J2300; J2405; J2590; J2765; J3490; J7120

== ENCOUNTER 2018-11-15 07:34 | Day surgery (SDC) | payer SELFPAY ==
[~2018-11-15 07:34] MED LIST: Lactated Ringers 1,000 ML IV SCH
[2018-11-15] MEDS ORDERED: Ondansetron 4 MG/2 ML SDV ONE (07:50)
[2018-11-15] MEDS ORDERED: Ketorolac 30 MG/ML SDV ONE (07:50)
[2018-11-15] MEDS ORDERED: Midazolam 1 MG/ML 2 ML SDV ONE (07:50)
[2018-11-15] MEDS ORDERED: Propofol 200 MG/20 ML SDV ONE (07:50)
[2018-11-15] MEDS ORDERED: fentaNYL 100 MCG/2 ML SDV ONE (07:50)
--- NOTE | 2018-11-15 08:15 | PCM.PREANE ---
Preanesthetic Assessment - Procedure Proposed Procedure: LEEP - Anesthesia/Transfusion/Family Hx Anesthesia History: Prior Anesthesia Without Reaction Family History of Anesthesia Reaction: No Transfusion History: No Prior Transfusion(s) Intubation History: Unknown - Review of Systems General: No Symptoms Pulmonary: No Symptoms Cardiovascular: No Symptoms Gastrointestinal: No Symptoms Neurological: No Symptoms Other: Reports: None - Physical Assessment NPO Status Date: 11/15/18 NPO Status Time: 00:00 Vital Signs: Last Vital Signs Temp 36.2 C 11/15/18 07:45 Pulse 74 11/15/18 07:45 Resp 16 11/15/18 07:45 BP 132/53 L 11/15/18 07:45 Pulse Ox 95 11/15/18 07:45 Height: 1.63 m Weight: 63.049 kg ASA Class: 2 Mental Status: Alert & Oriented x3 Dentition: Reports: Normal Dentition Thyro-Mental Finger Breadths: 3 Mouth Opening Finger Breadths: 3 ROM/Head Extension: Full Lungs: Clear to Auscultation Cardiovascular: Regular Rate - Allergies Allergies/Adverse Reactions: Allergies Allergy/AdvReac Type Severity Reaction Status Date / Time No Known Allergies Allergy Verified 11/11/18 10:52 - Blood Blood Available: No Product(s) Available: None - Anesthesia Plan Free Text/Narrative:: MAC sedation. Discussed. ? answered. Accepts. Pre-Op Medication Ordered: None - Acknowledgements Anesthesia Type Planned: MAC Pt an Appropriate Candidate for the Planned Anesthesia: Yes Alternatives and Risks of Anesthesia Discussed w Pt/Guardian: Yes Pt/Guardian Understands and Agrees with Anesthesia Plan: Yes Additional Comments: No contraindications to procedure. + smoker. PreAnesthesia Questionnaire HEENT History: Reports: Impaired Vision, Other (See Below) Other HEENT History: wears glasses/contacts Cardiovascular History: Reports: None Respiratory History: Reports: None Gastrointestinal History: Reports: None Genitourinary History: Reports: None INSURANCE CLAIMS ANALYST History: Reports: , Spontaneous Musculoskeletal History: Reports: Fracture Neurological History: Reports: None Psychiatric History: Reports: Anxiety, Depression, Panic Attack Endocrine/Metabolic History: Reports: None Hematologic History: Reports: Blood Transfusion(s) Other Hematologic History: blood transfusion with first c/section Immunologic History: Reports: None Oncologic (Cancer) History: Reports: None Dermatologic History: Reports: None - Infectious Disease History Infectious Disease History: Reports: None - Past Surgical History Head Surgeries/Procedures: Reports: None HEENT Surgical History: Reports: None Cardiovascular Surgical History: Reports: None Respiratory Surgical History: Reports: None GI Surgical History: Reports: None Female Surgical History: Reports: Section Endocrine Surgical History: Reports: None Neurological Surgical History: Reports: None Musculoskeletal Surgical History: Reports: Other (See Below) Other Musculoskeletal Surgeries/Procedures:: surgical repair of fx hand Oncologic Surgical History: Reports: None Dermatological Surgical History: Reports: None - SUBSTANCE USE Smoking Status *Q: Light Tobacco Smoker Tobacco Use Within Last Twelve Months: Cigarettes - HOME MEDS Home Medications: Home Meds Escitalopram [Lexapro] 10 mg PO DAILY #30 tablet 06/08/18 [Rx] Desogestrel-Ethinyl Estradiol [Reclipsen 28 Day Tablet] 1 tab PO DAILY 11/11/18 [History] Biotin 10,000 mcg PO DAILY 11/13/18 [History] - CURRENT (IN HOUSE) MEDS Current Meds: Current Medications Lactated Ringer's (Ringers, Lactated) 1,000 mls @ 125 mls/hr IV ASDIRECTED [facility] Last Admin: 11/15/18 08:00 Dose: 125 mls/hr Discontinued Medications Fentanyl (Sublimaze) Confirm Administered Dose 100 mcg .ROUTE .STK-MED ONE Stop: 11/15/18 07:51 Acetaminophen (Ofirmev) Confirm Administered Dose 100 mls @ as directed IV .STK- MED ONE Stop: 11/15/18 07:53 Ketorolac Tromethamine (Toradol) Confirm Administered Dose 30 mg .ROUTE .STK- MED ONE Stop: 11/15/18 07:51 Midazolam HCl (Versed 1 Mg/Ml) Confirm Administered Dose 2 mg .ROUTE .STK-MED ONE Stop: 11/15/18 07:51 Ondansetron HCl (Zofran) Confirm Administered Dose 4 mg .ROUTE .STK-MED ONE Stop: 11/15/18 07:51 Propofol (Diprivan 20 Ml) Confirm Administered Dose 200 mg .ROUTE .STK-MED ONE Stop: 11/15/18 07:51
[2018-11-15] MEDS ORDERED: Atropine 1 MG/ML SDV ONE (09:04)
--- NOTE | 2018-11-15 09:30 | PCM.OPNOTE ---
- General Post-Op/Procedure Note Date of Surgery/Procedure: 11/15/18 Operative Procedure(s): LEEP Findings: small area of acetowhite epithelium at 12 o'clock. Pre Op Diagnosis: BRYNN 2 Post-Op Diagnosis: Same Anesthesia Technique: MAC, Other (see below) (cervical block) Primary Surgeon: Rossana Cartagena Anesthesia Provider: Michele Rao Pathology: ectocervix labelled at 6 o'clock, anterior ectocervix labeled at 12 o'clock, ECC Fluid Replacement, Intraop: 850 EBL in mLs: 30 Complications: None Known Condition: Good Free Text/Narrative:: Intake & Output 11/14/18 11/15/18 11/15/18 22:59 06:59 14:59 Intake Total 900 Balance 900
--- NOTE | 2018-11-15 09:41 | PCM.POSTAN ---
POST ANESTHESIA ASSESSMENT - MENTAL STATUS Mental Status: Alert - VITAL SIGNS Vital Signs: Last Vital Signs Temp 36.1 C 11/15/18 09:29 Pulse 77 11/15/18 09:29 Resp 16 11/15/18 09:29 BP 102/65 11/15/18 09:29 Pulse Ox 100 11/15/18 09:29 - RESPIRATORY Respiratory Status: Respiratory Rate WNL - CARDIOVASCULAR CV Status: Pulse Rate WNL - GASTROINTESTINAL GI Status: No Symptoms - PAIN Pain Score: 0 - POST OP HYDRATION Hydration Status: Adequate & Stable - OBSERVATIONS Free Text/Narrative:: Doing well.
--- NOTE | 2018-11-15 09:44 | PCM48HPAN ---
Post Anesthesia Note - EVALUATION WITHIN 48HRS OF ANESTHETIC Vital Signs in Normal Range: Yes Patient Participated in Evaluation: Yes Respiratory Function Stable: Yes Airway Patent: Yes Cardiovascular Function Stable: Yes Hydration Status Stable: Yes Pain Control Satisfactory: Yes Nausea and Vomiting Control Satisfactory: Yes Mental Status Recovered: Yes Vital Signs: Last Vital Signs Temp 36.1 C 11/15/18 09:29 Pulse 77 11/15/18 09:29 Resp 16 11/15/18 09:29 BP 102/65 11/15/18 09:29 Pulse Ox 100 11/15/18 09:29 - COMMENTS/OBSERVATIONS Free Text/Narrative:: Not pain. Taking fluid well. No problems at present. Adequate for discharge.
--- NOTE | 2018-11-15 13:31 | OR ---
SURGEON: Rossana Cartagena M.D. DATE OF PROCEDURE: 11/15/2018 PREOPERATIVE DIAGNOSIS: Cervical intraepithelial neoplasia-2. POSTOPERATIVE DIAGNOSIS: Cervical intraepithelial neoplasia-2. PROCEDURE: Loop electrode excisional procedure of the cervix. PRIMARY SURGEON: Rossana Cartagena MD. ANESTHESIA: MAC with cervical block. ESTIMATED BLOOD LOSS: 30 mL. FLUIDS: 850 mL of crystalloid. PATHOLOGY SPECIMENS: Ectocervix labeled at 6 o'clock, anterior ectocervix labeled at 12 o'clock, and endocervical curettings. FINDINGS: On colposcopy, small area of acetowhite epithelium immediately adjacent to the os from 10 to 2 o'clock. COMPLICATIONS: None known. DISPOSITION: Stable to recovery. BRIEF HISTORY: This is a 23-year-old female. She presents with a high-grade Pap and biopsy showing BRYNN-2. She presents for loop electrode excisional procedure with risks discussed including bleeding, infection, risk of cervical incompetence, and risk of recurrence of 3% to 5%. Understanding all these risks, she does desire to proceed. DESCRIPTION OF PROCEDURE: With the patient in dorsal lithotomy position, under adequate IV sedation, the speculum was placed in the vagina. The cervix was cleansed with acetic acid. Colposcopy was performed with the finding of mild acetowhite epithelium from 10 to 2 o'clock. The entire transition zone was visualized and Lugol's solution was then applied. The nonstaining area was identified and was very close to the cervical os. A LEEP loop was utilized with a setting of 60 pure cut to excise the ectocervix. This was felt to be very close to the anterior ectocervix which had the area of acetowhite epithelium. Therefore, a second pass was taken anteriorly and labeled at 12 o'clock. The larger portion was labeled at 6 o'clock. Endocervical curettings were then obtained with sharp curette and Cytobrush and sent in a separate specimen. The base of the LEEP area was cauterized with pure coag at 60 ball-tip and followed by Monsel's solution. With this, the area was hemostatic prior to proceeding with the LEEP. Cervical block was performed by injecting 10 mL of 1% lidocaine with epinephrine at the 2, 3, 5, and 7 o'clock position. Final sponge, needle, and instrument counts were reported as correct. There were no known complications. The patient was transferred to recovery in good condition. MADIHA HAYS /[id number]
== END 2018-11-15 09:55 | disposition home or self-care (01) ==
LOC: MW.SDS 07:34
PROVIDERS: ATTEND Obstetrics & Gynecology
DX: N87.1 Moderate cervical dysplasia (principal); F17.210 Nicotine dependence, cigarettes, uncomplicated; Z79.899 Other long term (current) drug therapy
CPT/HCPCS: 36415; 57522; 81025; 85027; J0131; J0461; J1885; J2250; J2405; J2704; J3010; J7120